=== PATIENT | male | born 1985 | race Caucasian/White ===

== ENCOUNTER 2016-11-16 17:40 | Emergency (ER) | payer OTHER | END 2016-11-16 22:42 | disposition left against medical advice (07) | LOC: ER 17:40 | DX: Z53.21 Procedure and treatment not carried out due to patient leaving prior to being seen by health care provider (principal) ==

== ENCOUNTER 2016-11-30 17:23 | Emergency (ER) | payer OTHER | END 2016-11-30 20:21 | disposition home or self-care (01) | LOC: ER 17:23 | DX: M25.50 Pain in unspecified joint (principal); Z82.61 Family history of arthritis; F17.290 Nicotine dependence, other tobacco product, uncomplicated | CPT/HCPCS: 36415; 84550; 96372; 99283-25 ==